=== PATIENT | male | born 1945 | race Caucasian/White ===

== ENCOUNTER → 2016-09-12 | Outpatient (CLI) | payer MEDICARE, OTHER ==
[~2016-09-12] MED LIST: ASPI-345 PO; CEPH-507 PO; LORA10TA7 PO; LSNP20T PO; VERA240T17 PO
[2016-09-12 08:22] LABS: BILIRUBIN,URINE Negative (Negative); CLARITY,URINE Clear; COLOR,URINE Yellow; GLUCOSE, URINE (UA) Negative (Negative); LEUKOCYTE ESTERASE, URINE Negative (Negative); UROBILINOGEN,URINE 0.2 mg/dL (0.2-1.0)
[2016-09-12 08:26] LABS: BASOPHILS % (AUTO) 0 % (0-2); EOSINOPHILS # (AUTO) 0.3 10^3uL; EOSINOPHILS % (AUTO) 4 % (0-4); LYMPHOCYTES # (AUTO) 2.2 X10^3; MEAN CORPUSCULAR HEMOGLOBIN 31.1 PG (26.0-34.0); MEAN CORPUSCULAR HGB CONC 34.4 g/dL (31.0-37.0); MEAN CORPUSCULAR VOLUME 90 FL (80-100); MEAN PLATELET VOLUME 9.5 FL (6.0-9.5); MONOCYTES # (AUTO) 0.8 X10^3; MONOCYTES % (AUTO) 12 % (3-11); NEUTROPHILS # (AUTO) 3.3 X10^3; NEUTROPHILS % (AUTO) 49 % (51-67); PLATELET COUNT 273 10^3uL (150-450); WHITE BLOOD COUNT 6.76 10^3uL (4.0-11.0)
[2016-09-12 08:55] LABS: ALBUMIN 4.4 g/dL (3.4-5.0); ANION GAP 15.2 MEQ/L (3-15); CALCULATED IONIZED CALCIUM 4.5 mg/dL (3.8-4.6); TOTAL PROTEIN 7.4 g/dL (6.4-8.5)
--- NOTE | 2016-09-12 08:55 | Diagnostic Imaging Report ---
INDICATION: Preoperative evaluation prior to left hip surgery. PA and lateral views of the chest are obtained. COMPARISON: No previous study is available for comparison at this time. FINDINGS: Heart size and pulmonary vasculature are within normal limits, and the lungs are clear, bilaterally. IMPRESSION: Unremarkable chest. Dictated by: Dictated on workstation # [id number]
[2016-09-12 09:00] LABS: ERYTHROCYTE SEDIMENTATION RT* 3 mm/hr (0-19)
== END ==
LOC: LAB 07:48
PROVIDERS: ATTEND Internal Medicine
DX: M16.12 Unilateral primary osteoarthritis, left hip (principal); I10 Essential (primary) hypertension
CPT/HCPCS: 36415; 71020; 80053; 81003; 85025; 85652